=== PATIENT | male | born 1970 | race Caucasian/White ===

== ENCOUNTER 2017-02-17 05:22 | Emergency (ER) | payer BC ==
[~2017-02-17] VITALS: Ht 170.1 cm; Wt 63.5 kg
[~2017-02-17 05:22] MED LIST: ATARAX,VISTARIL50 MG PO; DAYPRO600 M1 PO; ONDANSETRON HYDR4 M1 PO; ROBAXIN750 MG PO; SERTRALINE HYDR50 MG PO; THERA1 TAB PO; VITAMIN B-11 TAB PO
[2017-02-17] MEDS ORDERED: CLINDAMYCIN HC300 MG PO (06:31)
[2017-02-17] MEDS ORDERED: Motrin,Rufen800 MG PO (06:31)
== END 2017-02-17 06:37 | disposition home or self-care (01) ==
LOC: ED 05:22
DX: S60.221A Contusion of right hand, initial encounter (principal); W23.0XXA Caught, crushed, jammed, or pinched between moving objects, initial encounter; Y93.89 Activity, other specified; Y92.59 Other trade areas as the place of occurrence of the external cause; Y99.8 Other external cause status

== ENCOUNTER 2020-10-04 17:41 | Emergency (ER) | payer BC ==
[~2020-10-04] VITALS: Ht 170.1 cm; Wt 63.5 kg
[~2020-10-04 17:41] MED LIST changes: +CLINDAMYCIN HC300 MG PO; +Motrin,Rufen800 MG PO
[2020-10-04] MEDS ORDERED: IBUPROFEN600 MG PO (20:55)
== END 2020-10-04 21:07 | disposition home or self-care (01) ==
LOC: ED 17:41
DX: S56.411A Strain of extensor muscle, fascia and tendon of right index finger at forearm level, initial encounter (principal); Z98.890 Other specified postprocedural states; X58.XXXA Exposure to other specified factors, initial encounter; Y93.89 Activity, other specified; Y92.89 Other specified places as the place of occurrence of the external cause; Y99.8 Other external cause status

== ENCOUNTER → 2021-12-30 | Day surgery (SDC) | payer BC ==
[~2021-12-30] VITALS: Ht 170.1 cm; Wt 61.2 kg
[~2021-12-30] MED LIST changes: +IBUPROFEN600 MG PO
[2021-12-30 07:30] VITALS: BP 175/90
[2021-12-30 08:39] VITALS: BP 121/63
[2021-12-30 08:54] VITALS: BP 122/66
[2021-12-30 09:11] VITALS: BP 140/85
== END | disposition home or self-care (01) ==
LOC: SDC 12-12 10:15
PROVIDERS: ATTEND Surgery
DX: Z12.11 Encounter for screening for malignant neoplasm of colon (principal); D12.2 Benign neoplasm of ascending colon; F32.9 Major depressive disorder, single episode, unspecified; F17.210 Nicotine dependence, cigarettes, uncomplicated; Z79.899 Other long term (current) drug therapy

== ENCOUNTER 2023-11-20 10:22 | Emergency (ER) | payer BC ==
[~2023-11-20] VITALS: Ht 170.1 cm; Wt 59.9 kg
[2023-11-20] MEDS ORDERED: Acetaminophen/Hydrocodone 5 MG/325 MG TABLET PO ONE (10:40)
[2023-11-20] MEDS ORDERED: NAPROSYN500 MG PO (11:06)
== END 2023-11-20 11:16 | disposition home or self-care (01) ==
LOC: ED 10:22
DX: S63.92XA Sprain of unspecified part of left wrist and hand, initial encounter (principal); F32.A Depression, unspecified; Z98.890 Other specified postprocedural states; W19.XXXA Unspecified fall, initial encounter; Y93.01 Activity, walking, marching and hiking; Y92.009 Unspecified place in unspecified non-institutional (private) residence as the place of occurrence of the external cause; Y99.0 Civilian activity done for income or pay